=== PATIENT | male | born 1960 | race Two or more races ===

== ENCOUNTER 2018-11-01 09:41 | Day surgery (SDC) | payer OTHER ==
[~2018-11-01] VITALS: Ht 175.3 cm; Wt 81.6 kg
[2018-11-01] VITALS (9 sets, daily range): BP systolic 112–135; BP diastolic 74–80
[~2018-11-01 09:41] MED LIST: AVAPRO300 MG ORAL; CIMETIDINE300 MG ORAL; FLUOXETINE HCL20 MG ORAL; OMEPRAZOLE40 M1 ORAL; TYLENOL EXTRA500 MG ORAL
[2018-11-01] MEDS ORDERED: ARDOSONS PO (10:19)
[2018-11-01] MEDS ORDERED: LR 1000ml ONE (11:30)
[2018-11-01] MEDS ORDERED: Lidocaine 1% MPF 10mg/ml 5ml ONE (11:30)
[2018-11-01] MEDS ORDERED: Propofol 200mg/20ml IV ONE (11:30)
--- NOTE | 2018-11-01 11:32 | Short Stay Surgery H&P ---
History of Present Illness History of Present Illness Chief Complaint Patient has had epigastric pains/GERDs HPI Eduardo López is a 58 year old male who was admitted on for GERDS and abdominal pains Patient History Allergies: Coded Allergies: No Known Allergies (Unverified , 11/01/18) PAST MEDICAL HISTORY: (1) S/P lumbar discectomy Past Surgeries: (1) Hypertension Medication History Scheduled Cimetidine (Cimetidine*), 300 MG ORAL DA, (Reported) Fluoxetine Hcl* (Fluoxetine Hcl*), 20 MG ORAL DAILY, (Reported) Irbesartan* (Avapro*), 300 MG ORAL DAILY, (Reported) Omeprazole (Omeprazole), 40 MG ORAL DAILY, (Reported) [Ardosons], Unknown Dose PO DAILY, (Reported) Scheduled PRN Acetaminophen* (Tylenol Extra Strength*), 500 MG ORAL Q6H PRN for Mild Pain/ Temp > 100.5, (Reported) Review of Systems Cardiovascular: Reports: hypertension Respiratory: Reports: no symptoms Skeletal: Reports: trauma Gastrointestinal: Reports: gastro esophageal reflux disease Genitourinary: Reports: no symptoms Neurologic: Reports: no symptoms Hematologic: Reports: no symptoms Physical Exam Vital Signs Last Vital Signs Date Time Temp Pulse Resp B/P (MAP) Pulse Ox O2 Delivery O2 Flow Rate FiO2 11/01/18 10:20 Room Air 11/01/18 10:19 98.2 66 18 126/74 99 Skin: normal HENT: normal Heart: normal Lungs: normal Abdomen: abnormal Extremities: normal Genitourinary: normal Plan Plan of Care Upper GI. endoscopy with biopsy Preop Interventions None. Summary of Findings See the reports Attestation Are the patient's medical conditions optimized for surgery? Attestation Response: yes Sharron Gardiner MD Nov 01, 2018 11:31
--- NOTE | 2018-11-01 11:33 | Pre-Procedure Note/Attestation ---
Pre-Procedure Note/Attestation Complete Prior to Procedure Planned Procedure: left Procedure Narrative: Examination of the upper GI tract via endoscopy and obtaiining biopsy as needed. Indications for Procedure Pre-Operative Diagnosis: R/O Peptic Ulcer/Gastritis. Attestation I attest that I discussed the nature of the procedure; its benefits; risks and complications; and alternatives (and the risks and benefits of such alternatives ), prior to the procedure, with the patient (or the patient's legal entry level account representative). I attest that, if there was a reasonable possibility of needing a blood transfusion, the patient (or the patient's legal entry level account representative) was given the [facility] standardized written summary, pursuant to the Clint Bluford Blood Safety Act ([place] Health and Safety Code # 1645, as amended). I attest that I re-evaluated the patient just prior to the surgery and that there has been no change in the patient's H&P, except as documented below: Sharron Gardiner MD Nov 01, 2018 11:33
--- NOTE | 2018-11-01 11:50 | Endoscopy Procedure Note ---
Endoscopy Procedure Note General Indication for Procedure: Abdominal pains/heartburn/GERDs Procedures Performed: EGD - Completely normal upper GI. endoscopy, biopsy was taken per random from gastric body. Specimen: yes Pt Tolerated Procedure Well: Yes Estimated Blood Loss: none Anesthesia Anesthesiologist: Phuong. Angeli FOX Anesthesia: moderate sedation Medications Medication Given: see anesthesia record Inserted Devices Implant(s) used?: No Quality Quality of Bowel Preparation: Excellent GI Core Measures 50 yrs or older w/o bx or poly: Not Applicable 10yrs. F/U not recommended: Not Applicable If not recommended, why?: Med reason:<3 yrs.: System Reason:<3 yrs.: Sharron Gardiner MD Nov 01, 2018 11:50
--- NOTE | 2018-11-01 11:51 | Discharge Instructions ---
Discharge Instructions Discharge Instructions Follow up with: Visit the doctor in the office after 2 weeks, call first. For Congestive Heart Failure Reminder Report to your physician any weight gain of 5 pounds or more in one week. Sharron Gardiner MD Nov 01, 2018 11:51
--- NOTE | 2018-11-01 12:05 | Anethesia Preoperative Eval ---
Anesthesia Pre-op PMH/ROS General Date of Evaluation: Nov 01, 2018 Time of Evaluation: 11:32 Anesthesiologist: Caitlyn Suh CRNA ASA Score: ASA 2 Mallampati Score Class I : Soft palate, uvula, fauces, pillars visible Class II: Soft palate, uvula, fauces visible Class III: Soft palate, base of uvula visible Class IV: Only hard plate visible Mallampati Classification: Class III Surgeon: Abdifatah Diagnosis: GERD Surgical Procedure: EGD diagnostic Anesthesia History: none Family History: no anesthesia problems Allergies: Coded Allergies: No Known Allergies (Unverified , 11/01/18) Medications: see eMAR Patient NPO?: Yes NPO Date: Nov 01, 2018 NPO Time: 00:00 Past Medical History Cardiovascular: Reports: HTN; Denies: CAD, DC, valve dz, arrhythmia, other Gastrointestinal/Genitourinary: Denies: GERD, CRI, ESRD, other Neurologic/Psychiatric: Denies: dementia, CVA, depression/anxiety, TIA, other Endocrine: Denies: DM, hypothyroidism, steroids, other HEENT: Denies: cataract (L), cataract (R), glaucoma, [place] (L), [place] (R), other Hematology/Immune: Denies: anemia, DVT, bleeding disorder, other Musculoskeletal/Integumentary: Reports: other - chronic lower back pain; Denies: OA, RA, DJD, DDD, edema PMH Narrative: as above PSxH Narrative: lumbar surgery Anesthesia Pre-op Phys. Exam Physician Exam Last Vital Signs Date Time Temp Pulse Resp B/P (MAP) Pulse Ox O2 Delivery O2 Flow Rate FiO2 11/01/18 10:20 Room Air 11/01/18 10:19 98.2 66 18 126/74 99 Constitutional: NAD Neurologic: CN 2-12 intact Cardiovascular: RRR, no M/R/G Respiratory: CTA Gastrointestinal: S/NT/ND Airway Exam Mallampati Score: Class III MO: full Neck: FROM TMD: > 3FB ROM: full Teeth: intact Dentures: no upper, no lower Anesthesia Pre-op A/P Risk Assessment & Plan Assessment: ASA 2, ok to proceed Plan: MAC Status Change Before Surgery: No Pre-Antibiotics Given Within 1 Hr of Incision: Caitlyn Morales CRNA Nov 01, 2018 12:05
--- NOTE | 2018-11-01 12:06 | Immediate Post-Op Evaluation ---
Immediate Post-Op Evalulation Immediate Post-Op Evalulation Procedure: EGD diagnostic Date of Evaluation: Nov 01, 2018 Time of Evaluation: 11:56 IV Fluids: LR 600 ml Blood Pressure Systolic: 121 Blood Pressure Diastolic: 76 Pulse Rate: 74 Respiratory Rate: 20 O2 Sat by Pulse Oximetry: 98 Temperature (Fahrenheit): 98.1 Pain Score (1-10): 0 Nausea: No Vomiting: No Complications none Patient Status: awake, reacts, patent Hydration Status: adequate Given Within 1 Hr of Incision: Caitlyn Morales CRNA Nov 01, 2018 12:06
--- NOTE | 2018-11-01 12:36 | 48 Hour Post Anesthesia Eval ---
Post Anesthesia Evaluation Procedure: EGD diagnostic Date of Evaluation: Nov 01, 2018 Time of Evaluation: 12:35 Blood Pressure Systolic: 135 0: 78 Pulse Rate: 68 Respiratory Rate: 20 Temperature (Fahrenheit): 98.1 O2 Sat by Pulse Oximetry: 99 Airway: patent Nausea: No Vomiting: No Pain Intensity: 0 Hydration Status: adequate Cardiopulmonary Status: stable Mental Status/LOC: patient returned to baseline Follow-up Care/Observations: per GI Post-Anesthesia Complications: none Follow-up care needed: ready to discharge Caitlyn Suh CRNA Nov 01, 2018 12:36
--- NOTE | 2018-11-01 20:00 | Operative Note - Dictated ---
DATE OF OPERATION: 11/01/2018 SURGEON: Sharron Gardiner M.D. PROCEDURE: Esophagogastroduodenoscopy with biopsy. PREOPERATIVE DIAGNOSES: Abdominal pain, epigastric pain, and heartburn, rule out peptic ulcer disease. POSTOPERATIVE DIAGNOSIS: Completely normal upper GI endoscopy. Biopsy was taken per random from gastric body. MEDICATION USED: Per Ms. Suh, refining engineer, CLINIC OFFICE ASSISTANT. INSTRUMENT: GIF Olympus upper GI video endoscope. DESCRIPTION OF PROCEDURE: The patient, after arriving in the endoscopy unit, was told about risks and benefits of the procedure, which he accepted and signed informed consent. At this time, he was put on the left lateral decubitus position and after given adequate IV sedation, scope was gently passed through the cricopharyngeal area, was lodged into the upper esophagus gradually advanced towards gastroesophageal junction. The entire length of the esophagus looked normal. There was no any abnormality such as varices, tumors, strictures, ulcers, etc. GE junction also looked normal. No evidence of Noel's or hiatal hernia noted. At this time, the scope was advanced into the stomach. Gastric cavity was distended with insufflation of air. The areas of the fundus and the body and the antrum were examined, which looked completely normal and on retroflexion maneuver which was applied with the scope also revealed no other abnormalities. At this point, one random biopsy from gastric body obtained and subsequently scope was passed through the pylorus, first and second portion of duodenum also found to be completely normal. Finally, the scope was pulled out and the procedure was terminated. The patient tolerated the procedure well and left the endoscopy room in a good condition. Sharron Gardiner M.D. DR: KRISTINE JOB#: [id number] CC:
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
== END 2018-11-01 13:00 | disposition home or self-care (01) ==
LOC: GAS 09:41
DX: R10.13 Epigastric pain (principal); R12 Heartburn; I10 Essential (primary) hypertension; F32.9 Major depressive disorder, single episode, unspecified; F41.9 Anxiety disorder, unspecified; E66.3 Overweight; K21.9 Gastro-esophageal reflux disease without esophagitis; K29.50 Unspecified chronic gastritis without bleeding
CPT/HCPCS: 43239; J2704; 94003; 94150